=== PATIENT | female | born 1985 | race African-American/Black ===

== ENCOUNTER 2017-09-01 21:12 | Emergency (ER) | payer OTHER ==
[~2017-09-01] VITALS: Ht 167.6 cm; Wt 86.2 kg
--- NOTE | 2017-09-01 21:29 | Emergency Room Report ---
History of Present Illness General Chief Complaint: Pain Source: Patient Present Illness HPI Is a 31-year-old female with no past medical history. She presents with chief complaint of chest pain bilaterally. Mostly rib area. Onset for last 2-3 weeks. Worse with outpatient movement. Also with breast tenderness. No nausea no vomiting. No abdominal pain. No vaginal bleeding. Not on control pill. No family history of DVT or PE. No heavy lifting. Allergies: Coded Allergies: CLINDAMYCIN (Verified Allergy, Unknown, 09/01/17) Patient History Past Medical History: none, see triage record, old chart reviewed Past Surgical History: none Pertinent Family History: none Social History: Denies: smoking Last Menstrual Period: Aug 16 Now: No : 1 Immunizations: other Reviewed Nursing Documentation: PMH: Agreed, PSxH: Agreed Nursing Documentation-PM Past Medical History: No Stated History Review of Systems Eye: Denies: eye pain, blurred vision ENT: Denies: ear pain, nose congestion, throat swelling Respiratory: Denies: cough, shortness of breath Cardiovascular: Reports: chest pain, Denies: palpitations Gastrointestinal: Denies: abdominal pain, diarrhea, nausea, vomiting Musculoskeletal: Denies: back pain, joint pain Skin: Denies: rash Neurological: Denies: headache, numbness Endocrine: Denies: increased thirst, increased urine Hematologic/Lymphatic: Denies: easy bruising All Other Systems: negative except mentioned in HPI Physical Exam Vital Signs Date Time Temp Pulse Resp B/P (MAP) Pulse Ox O2 Delivery O2 Flow Rate FiO2 09/01/17 21:15 98.4 76 18 127/74 98 Room Air vitals normal Sp02 EP Interpretation: reviewed, normal General Appearance: well appearing, no apparent distress, alert Head: normocephalic, atraumatic Eyes: bilateral eye PERRL, bilateral eye EOMI ENT: hearing grossly normal, normal pharynx Neck: full range of motion, supple, no meningismus Respiratory: lungs clear, normal breath sounds, other - Mild tenderness laterally over the rib area. Cardiovascular #1: regular rate, rhythm, no murmur Gastrointestinal: normal bowel sounds, non tender, no mass, no organomegaly, no bruit, non-distended Musculoskeletal: back normal, gait/station normal, normal range of motion Psychiatric: mood/affect normal Skin: warm/dry Medical Decision Making Diagnostic Impression: Primary Impression: Chest wall pain ER Course Patient with chest wall pain. No evidence of ACS, PE, dissection to name a few. Recommend outpatient mammography. Pain is reproducible. Most likely musculoskeletal pain. Chest X-Ray Diagnostic Results Chest X-Ray Diagnostic Results : Chest X-Ray Ordered: Yes # of Views/Limited/Complete: 1 View Indication: Chest Pain EP Interpretation: Yes Interpretation: no consolidation, no effusion, no pneumothorax, no acute cardiopulmonary disease Impression: No acute disease Electronically Signed by: Virgil Perez MD CT/MRI/US Diagnostic Results CT/MRI/US Diagnostic Results : Imaging Test Ordered: CT chest Impression negative per radiologist Last Vital Signs Date Time Temp Pulse Resp B/P (MAP) Pulse Ox O2 Delivery O2 Flow Rate FiO2 09/01/17 21:15 98.4 76 18 127/74 98 Room Air Status: improved Disposition: HOME, SELF-CARE Condition: Stable Scripts Naproxen* (NAPROSYN*) 500 Mg Tablet 500 MG ORAL TWICE A DAY, #30 TAB Prov: VIRGIL PEREZ M.D. 09/02/17 Patient Instructions: PAIN, Uncertain Cause (Acute) Additional Instructions: Follow up with your doctor in 7 days. Recommend outpatient mammography. Return if worse. VIRGIL PEREZ M.D. Sep 01, 2017 21:29
[2017-09-01 21:30] VITALS: BP 125/72
[2017-09-01] MEDS ORDERED: Ketorolac 30mg Inj IV ONE (21:30)
[2017-09-01 21:58] LABS: APPEARANCE,URINE SLIGHTLY CLOUDY; BILIRUBIN, URINE NEGATIVE (NEGATIVE); COLOR,URINE AMBER; EOSINOPHILS % (AUTO) 1.3 % (0.0-3.0); GLUCOSE, URINE (UA) NEGATIVE (NEGATIVE); HEMOGLOBIN 13.1 G/DL (12.0-16.0); KETONES,URINE NEGATIVE (NEGATIVE); LEUKOCYTE ESTERASE ,URINE 3+ (NEGATIVE); LYMPHOCYTES % (AUTO) 43.9 % (20.0-45.0); MEAN CORPUSCULAR VOLUME 93 FL (80-99); MONOCYTES % (AUTO) 8.3 % (1.0-10.0); NEUTROPHILS % (AUTO) 45.5 % (45.0-75.0); NITRITE,URINE NEGATIVE (NEGATIVE); PH,URINE 6 (4.5-8.0); PLATELET COUNT 255 K/UL (150-450); PROTEIN,URINE 1+ (NEGATIVE); RED BLOOD COUNT 4.32 M/UL (4.20-5.40); UROBILINOGEN,URINE 1 MG/DL (0.0-1.0); WHITE BLOOD COUNT 5.9 K/UL (4.8-10.8)
[2017-09-01 22:01] LABS: ANION GAP 10 mmol/L (5-15); BLOOD UREA NITROGEN 12 mg/dL (7-18); CARBON DIOXIDE 25 MMOL/L (21-32); CHLORIDE 105 MMOL/L (98-107); POTASSIUM 3.8 MMOL/L (3.5-5.1); SODIUM 140 MMOL/L (136-145)
[2017-09-01 22:30] VITALS: BP 126/78
[2017-09-01] MEDS ORDERED: cefTRIAXone 1 GM in NS 55 ML IVPB ONE (22:30)
[2017-09-01 23:30] VITALS: BP 122/74
[2017-09-02] MEDS ORDERED: NAPROSYN500 M1 ORAL (00:07)
[2017-09-02 00:15] VITALS: BP 122/74
--- NOTE | 2017-09-02 10:14 | Diagnostic Imaging Report ---
Indication: Pain Technique: XRAY Chest 1v Comparison: None Findings: Heart size within upper limits for normal. Mediastinal contours are sharp. There is no focal consolidation, pneumothorax or pleural effusion. Osseous structures demonstrate no acute abnormality. Impression: No radiographic evidence of acute cardiopulmonary disease.
--- NOTE | 2017-09-02 11:33 | Diagnostic Imaging Report ---
Indication: Chest pain Technique: CT pulmonary angiogram performed utilizing automated exposure control with intravenous contrast. Axial, sagittal and coronal reconstructions were obtained. 3-D volumetric reconstructions were also performed. CT dose: Total DLP 1442.07 mGycm; CTDI vol 40.83 mGy Comparison: None Findings: There is adequate opacification of the pulmonary arteries. There is no pulmonary embolism. Main pulmonary artery is normal in size. Thoracic aorta is normal in caliber. No evidence to suggest aortic dissection. Heart is within upper limits for normal size. No pericardial effusion. No hilar or mediastinal lymphadenopathy. Imaged thyroid grossly unremarkable. Dependent atelectasis noted in the posterior lungs. No focal airspace consolidation to suggest pneumonia. No pleural effusion. No pneumothorax. No acute osseous abnormality seen. Images through the upper abdomen are grossly unremarkable. IMPRESSION: No evidence of pulmonary embolism. Thoracic aorta is unremarkable in appearance. Lungs are clear. This corresponds with the statrad preliminary report. The CT scanner at [facility] is accredited by the [employer] and the scans are performed using protocols designed to limit radiation exposure to as low as reasonably achievable to attain images of sufficient resolution adequate for diagnostic evaluation.
== END 2017-09-02 00:15 | disposition home or self-care (01) ==
LOC: EMR 21:44
DX: R07.89 Other chest pain (principal); Z88.1 Allergy status to other antibiotic agents
CPT/HCPCS: 36415; 71045; 71275; 80048; 81003; 81025; 85025; 85379; 87086; 96361; 96365; 99284; J0696; J1885; Q9967